=== PATIENT | female | born 1960 | race Caucasian/White ===

== ENCOUNTER → 2016-09-23 | Outpatient (CLI) | payer BC ==
--- NOTE | 2016-09-23 13:52 | KCIC ---
CHEST, TWO VIEWS, 09/23/2016: History: Persistent cough, nonsmoker No previous chest radiographs are available at this time for comparison purposes. The heart size and pulmonary vascularity are normal. No pulmonary infiltrate is seen. There is no evidence of pleural fluid. Moderate hypertrophic spurring is present in the spine. IMPRESSION: No acute cardiopulmonary abnormality is detected. Electronically signed by: Phu Atwood MD (Sep 23, 2016 13:50:45)
== END | disposition home or self-care (01) ==
LOC: KCIC 13:20
PROVIDERS: ATTEND Family Medicine
DX: R05 Cough (principal)
CPT/HCPCS: 71020

== ENCOUNTER → 2016-12-29 | Outpatient (CLI) | payer BC ==
--- NOTE | 2016-12-29 10:14 | KCIC ---
Carotid doppler ultrasound History: Right carotid bruit, hypertension, diabetes Multiple grayscale, color, and duplex spectral analysis waveform sonographic images were acquired of the carotid, subclavian, and vertebral arteries. Comparison: None Findings: RIGHT: PSV cm/sec EDV cm/sec Common carotid artery 120 24 Maximal internal carotid artery 88 28 External carotid artery 108 Vertebral artery 27 ICA/CCA ratio 0.73 LEFT: PSV cm/sec EDV cm/sec Common carotid artery 119 28 Maximum internal carotid artery 86 34 External carotid artery 99 Vertebral artery 67 ICA/CCA ratio 0.73 Velocities used to determine stenosis are known to correlate with NASCET angiographic criteria. There is antegrade flow in the bilateral vertebral arteries. No significant focal stenosis is demonstrated on grayscale or color images. There is mild intimal thickening bilaterally, mild eccentric plaque in the carotid bulbs. Incidental note is made of some nodes of the visualized bilateral neck, largest on the left 2.2 x 0.8 x 1 cm and on the right up to 3 x 0.9 x 1.4 cm. Impression: 1. There is no evidence of a hemodynamically significant stenosis. 2. There are some nonspecific nodes of the visualized bilateral neck, although not considered significantly enlarged based on short axis dimension. Electronically signed by: Isael Jose MD (12/29/2016 10:10 AM)
== END | disposition home or self-care (01) ==
LOC: KCIC US 08:57
PROVIDERS: ATTEND Physician Assistant
DX: I65.23 Occlusion and stenosis of bilateral carotid arteries (principal); I10 Essential (primary) hypertension; E11.9 Type 2 diabetes mellitus without complications
CPT/HCPCS: 93880

== ENCOUNTER → 2018-10-19 | Outpatient (CLI) | payer BC ==
--- NOTE | 2018-10-19 08:48 | KCIC ---
Examination: SHOULDER 2+V LEFT History: Left shoulder pain for 2 months Comparison/Correlation: 09/23/2016 two-view chest x-ray exam Findings: Total 3 images of the left shoulder were obtained. Sclerotic lesion involving the humeral head is present medially and ovoid in shape. It measures up to 1.3 cm x 0.9 cm. It may represent a bone island and has remained stable upon correlation previous two-view chest x-ray exam. Very small sclerotic lesion at the left humeral neck also seen. Lytic lucency involving the greater tuberosity is present measuring up to 1.6 cm. Spurring along the inferior margin of the left humeral head noted. Mild glenohumeral joint space narrowing is questioned. Acromioclavicular joint is unremarkable. Partially visualized left upper lung field is normal. Soft tissues about the shoulder normal. Impression: Lucency which raises question of underlying lytic lesion also noted. Correlate with clinical history in determining further assessment with MRI of the left shoulder if able. Electronically signed by: aDvidson Byrnes MD (10/19/2018 8:45 AM) [facility]
== END | disposition home or self-care (01) ==
LOC: KCIC 08:01
PROVIDERS: ATTEND Family Medicine
DX: M75.92 Shoulder lesion, unspecified, left shoulder (principal)
CPT/HCPCS: 73030

== ENCOUNTER → 2018-11-16 | Outpatient (CLI) | payer BC ==
--- NOTE | 2018-11-16 13:14 | KCIC ---
MR of the left shoulder HISTORY: Shoulder pain. TECHNIQUE: Routine multiplanar sequences are obtained. FINDINGS: The acromioclavicular joint is mildly degenerative. Rotator cuff tendinosis with thickening and heterogeneous signal. There is a deep undersurface tear of the supraspinatus tendon measures about 15 mm AP diameter and 80% deep. No complete through and through rupture. Subscapularis tendinosis with mild partial tearing. Small joint effusion. No significant subdeltoid bursal fluid. Mild cystic changes at the greater tuberosity. No aggressive bone destruction or acute fracture. There is a fatty mass in the posterior deltoid muscle, measures about 4 cm diameter. This is homogeneously fatty with several thin internal septations. There is also some interposed muscle tissue fiber traversing the lesion. IMPRESSION: 1. Rotator cuff tendinosis. Deep undersurface supraspinatus tendon tear, mild partial subscapularis tendon tear. 2. Fatty mass at the posterior deltoid muscle most likely a lipoma. Electronically signed by: Saad Friedman MD (11/16/2018 1:11 PM) [id number]
== END | disposition home or self-care (01) ==
LOC: KCIC MRI 09:46
PROVIDERS: ATTEND Family Medicine
DX: M75.102 Unspecified rotator cuff tear or rupture of left shoulder, not specified as traumatic (principal); M25.412 Effusion, left shoulder; M62.89 Other specified disorders of muscle; M75.82 Other shoulder lesions, left shoulder
CPT/HCPCS: 73221